=== PATIENT | male | born 1960 | race Caucasian/White ===

== ENCOUNTER 2017-06-29 11:05 | Emergency (ER) | payer OTHER ==
[2017-06-29] MEDS: LIDOCAINE 1% (MDV) 20 ML INJ SC (14:25)
== END 2017-06-29 15:31 | disposition home or self-care (01) ==
LOC: FTE 11:05
DX: L72.3 Sebaceous cyst (principal); E11.9 Type 2 diabetes mellitus without complications; I10 Essential (primary) hypertension; Z79.84 Long term (current) use of oral hypoglycemic drugs
CPT/HCPCS: 10061; 99283-25

== ENCOUNTER 2017-07-02 08:16 | Emergency (ER) | payer OTHER | END 2017-07-02 11:30 | disposition home or self-care (01) | LOC: FTE 08:16 | DX: Z48.01 Encounter for change or removal of surgical wound dressing (principal); I10 Essential (primary) hypertension | CPT/HCPCS: 99281; Z7502 ==